=== PATIENT | female | born 1935 | race Caucasian/White ===

== ENCOUNTER 2017-07-03 12:35 | Outpatient (CLI) | payer MEDICARE ==
[2017-07-03 14:43] LABS: Hematocrit 46.6 % (36.0-47.0); Mean Platelet Volume 7.5 fL (7.4-10.4); Red Blood Cell (RBC) Count 4.74 mill/uL (4.20-5.40); White Blood Cell (WBC) Count 8.5 thou/uL (4.8-10.8)
[2017-07-03 14:45] LABS: Hematocrit 46.6 % (36.0-47.0)
[2017-07-03 14:48] LABS: Bilirubin Negative (Negative); Blood, Urine Negative (Negative); Glucose, Urine (Dipstick) Negative (Negative); Ketone, Urine Negative (Negative); Nitrite Positive (Negative); Protein, Urine (Dipstick) Trace mg/dL (Neg-Trace)
[2017-07-03 14:52] LABS: PTT 29.1 SEC (22.9-36.1); Prothrombin Time 14.2 SEC (12.0-14.7)
[2017-07-03 14:55] LABS: Bacteria/HPF 4+ HPF (None Seen); Hyaline Casts/LPF 4-6 HYALINE CAST LPF (0-3 Hyaline); RBC/HPF 0-3 HPF (0-3); Squamous Epithelial 0-3 HPF (0-3)
[2017-07-03 15:07] LABS: Anion Gap 15 mmol/L (10-20); BUN (Urea Nitrogen) 18 mg/dL (9.8-20.1); Calc. Creatinine Clearance 0 mL/min (70-130); Calcium 10.3 mg/dL (7.8-10.44); Carbon Dioxide 23 mmol/L (23-31); Chloride 105 mmol/L (98-107); Estimated GFR-MDRD 56
--- NOTE | 2017-07-04 10:01 | EKG ---
Test Reason : PREOP Blood Pressure : / mmHG Vent. Rate : 069 BPM Atrial Rate : 069 BPM P-R Int : 140 ms QRS Dur : 082 ms QT Int : 404 ms P-R-T Axes : 036 -47 023 degrees QTc Int : 432 ms Sinus rhythm with occasional Premature ventricular complexes Low voltage QRS Left anterior fascicular block Abnormal ECG No previous ECGs available Confirmed by SISSY PARNELL ([id number]) on 07/04/2017 10:01:10 AM Referred By: JENNIFER Confirmed By:SISSY PARNELL
== END 2017-07-03 12:36 | disposition home or self-care (01) ==
LOC: LABBT 12:35
PROVIDERS: ATTEND Urology
DX: Z01.812 Encounter for preprocedural laboratory examination (principal); N20.0 Calculus of kidney
CPT/HCPCS: 80048; 81001; 85027; 85576; 85610; 85730; 87077; 87086; 87186; 93005; 93010

== ENCOUNTER 2017-07-10 06:06 | Day surgery (SDC) | payer MEDICARE ==
[2017-07-03 12:52] VITALS: BMI 26.4
[2017-07-10] MEDS ORDERED: Fentanyl 100 MCG/2 ML VIAL ONE (06:29)
[2017-07-10] MEDS ORDERED: Sodium Chloride 0.9% 100 ML ONE (06:39)
[2017-07-10] MEDS ORDERED: cefTRIAXone\\ROCEPHIN 1 GM VIAL ONE (06:39)
[2017-07-10] MEDS ORDERED: Lidocaine 1% PF 5 ML VIAL ONE (07:34)
[2017-07-10] MEDS ORDERED: Dexamethasone 20 MG/5 ML VIAL ONE (07:34)
[2017-07-10] MEDS ORDERED: Glycopyrrolate 0.2 MG/ML 5 ML SYRINGE ONE (07:34)
[2017-07-10] MEDS ORDERED: Propofol 200 MG/20 ML VIAL ONE (07:34)
[2017-07-10] MEDS ORDERED: ePHEDrine/0.9% NaCl/PF SYRINGE 50 mg/10 ml ONE (07:34)
[2017-07-10] MEDS ORDERED: PHENYLEPHRINE-NS 100 MCG/ML 10 ML SYRINGE ONE (07:34)
[2017-07-10] MEDS ORDERED: Iothalamate Meglumine 60% 50 ML VIAL FS ONE (08:29)
--- NOTE | 2017-07-10 09:31 | OP ---
DATE OF PROCEDURE: 07/10/2017 PREOPERATIVE DIAGNOSIS: Left renal stone. POSTOPERATIVE DIAGNOSIS: Left renal stone. PROCEDURE PERFORMED: Left extracorporeal shock wave lithotripsy, cystoscopy, left stent. SURGEON: Noe Rose M.D. ANESTHETIC: General. ESTIMATED BLOOD LOSS: Not recorded. FINDINGS: There is a 1.5 cm stone in the left renal pelvis treated with 2400 shocks at level 4 with good fragmentation. A 6 x 24 Polaris double-J stent was placed. The string was not attached. OPERATIVE TECHNIQUE: After obtaining IV antibiotics and after obtaining written and verbal consent and documenting normal preoperative blood work, she was taken to the operating suite. She was place d in a supine position on the treatment table. PlexiPulses were placed on her lower extremities and turned on. She was given a general anesthetic, oral obturator intubation. She was maintained in a supine position. She was coupled to the lithotriptor unit. The stone was placed in treatment foca l point and shockwave therapy was commenced. Fluoroscopy was used intermittently to assess stone fr agmentation and to reposition as necessary. After about 200 shocks, a 5 minute pause was given. Th e stone was breaking up very well, so we did not have to go above the level of 4. After 2400 shocks , it appeared that the stone had fragmented well and at this point, she was placed in the dorsal lit hotomy position. She was sterilely prepped and draped. Cystoscopy was performed with a 22-[place] s tony. This was well lubricated and passed under direct vision through the female urethra into the urinary bladder. The bladder was filled and emptied a number of times. There was some bloody efflu x from the left ureteral orifice. A 5 [place] Pollack catheter was placed 2 or 3 cm up the left uret eral orifice and contrast was injected in a retrograde manner, looked like the stone was consistent fragments. No fragments along the ureter. She had a dilated left upper caliceal system and we pass ed the open-ended catheter up until that with the aid of a straight Glidewire and replaced through t he open-ended catheter, a 0.038 guidewire, removed the open-ended catheter and placed a stent over t he guidewire, pushing up into place so its proximal end coiled in the dilated upper caliceal system and its distal end coiled in the bladder when the wire was removed. The patient was then awakened a nd extubated and taken by stretcher to the recovery room.
== END 2017-07-10 11:10 | disposition home or self-care (01) ==
LOC: SDC 06:06
PROVIDERS: ATTEND Urology
PROC: 0TF4XZZ Fragmentation in Left Kidney Pelvis, External Approach (ICD-10-PCS; principal; 2017-07-10)
PROC: 0T778DZ Dilation of Left Ureter with Intraluminal Device, Via Natural or Artificial Opening Endoscopic (ICD-10-PCS; 2017-07-10)
DX: N20.0 Calculus of kidney (principal); Z90.49 Acquired absence of other specified parts of digestive tract; Z98.890 Other specified postprocedural states
CPT/HCPCS: 50590; 52332; C1758; C1769; J0696; J1100; J2001; J2704; J3010; J7050; Q9961

== ENCOUNTER 2019-05-22 05:55 | Day surgery (SDC) | payer MEDICARE ==
[2019-05-21 14:01] VITALS: BMI 25.4
[2019-05-22 06:33] LABS: #Basophils 0.1 thou/uL (0.0-0.2); #Eosinphils 0.1 thou/uL (0.0-0.7); #Lymphocytes 2.2 thou/uL (1.20-3.40); #Monocytes 0.6 thou/uL (0.11-0.59); #Neutrophils 5.4 thou/uL (1.40-6.50); %Basophils 0.9 % (0.0-1.0); %Eosinophils 1.5 % (0.0-10.0); %Lymphocytes 26.5 % (21.0-51.0); %Monocytes 7.2 % (0.0-10.0); %Neutrophils 63.9 % (42.0-75.0); Hemoglobin 14.9 g/dL (12.0-16.0); Mean Corpuscular HGB CONC 32.6 g/dL (32.0-36.0); Mean Corpuscular Hemoglobin 31.8 pg (27.0-31.0); Mean Corpuscular Volume 97.6 fL (78.0-98.0); Mean Platelet Volume 7.5 fL (7.4-10.4); Platelet Count 286 thou/uL (130-400); RBC Distribution Width 12.6 % (11.5-14.5); Red Blood Cell (RBC) Count 4.69 mill/uL (4.20-5.40); White Blood Cell (WBC) Count 8.4 thou/uL (4.8-10.8)
[2019-05-22 06:35] LABS: Platelet Count 281 thou/uL (130-400)
[2019-05-22 06:38] LABS: INR-International Normal Ratio 1.1; PTT 25.7 SEC (22.9-36.1); Prothrombin Time 13.7 SEC (12.0-14.7)
[2019-05-22 06:50] LABS: Anion Gap 14 mmol/L (10-20); BUN (Urea Nitrogen) 15 mg/dL (9.8-20.1); Calc. Creatinine Clearance 49 mL/min (70-130); Carbon Dioxide 24 mmol/L (23-31); Chloride 107 mmol/L (98-107); Estimated GFR-MDRD 65; Glucose 94 mg/dL (83-110); Potassium 3.8 mmol/L (3.5-5.1); Sodium 141 mmol/L (136-145)
[2019-05-22 06:51] LABS: EPI 73 SEC (67-199)
[2019-05-22] MEDS ORDERED: Fentanyl 100 MCG/2 ML VIAL ONE (06:56)
[2019-05-22] MEDS ORDERED: Iothalamate Meglumine 60% 50 ML VIAL FS ONE (07:12)
[2019-05-22] MEDS ORDERED: ceFAZolin Sodium (SDC) 2 GM/100 ML BAG ONE (07:23)
--- NOTE | 2019-05-22 08:12 | RAD ---
SUPINE ABDOMEN: HISTORY: Preop. COMPARISON: 08/16/2017 FINDINGS: The left renal stent noted on the prior exam has been removed. Numerous calcifications again overly the left abdomen, many of which appear to lie outside the kidney. There is stool and gas throughout the colon with scattered small bowel gas obscuring the renal outlines. There are degenerative change s in the spine with scoliotic curvature. No acute interval change. POS: [facility]
--- NOTE | 2019-05-22 09:22 | OP ---
DATE OF PROCEDURE: 05/22/2019 PREOPERATIVE DIAGNOSIS: Left renal pelvic stone. POSTOPERATIVE DIAGNOSIS: Left renal pelvic stone. PROCEDURE PERFORMED: Left extracorporeal shockwave lithotripsy. ANESTHESIA: General. ESTIMATED BLOOD LOSS: Not recorded. FINDINGS: There is a 9-mm left renal pelvic stone that was treated with 2500 shocks at level 4 and 300 shocks at level 5. It did appear to fragment well and stent was not placed. DESCRIPTION OF PROCEDURE: After obtained written and verbal consent from the patient, after receiving IV Ancef, she was taken to the operating suite. She was placed in the supine position on the treatment table. PlexiPulses were placed on her lower extremities and turned on. She was given a general anesthetic and oral obturator intubation. She was coupled to the lithotripsy unit and the stone was placed in treatment focal point. Shockwave therapy was commenced at a very low kV and a low rate. After a couple of 100 shocks, a few minutes pause was given and then we restarted the treatment going up to level 4, keeping the rate at 60. Fluoroscopy was used intermittently to document stone fragmentation and reposition as necessary. At about 1500 shocks, we increased the rate to 5 and this did help to break up the stone even a little bit better than before and then for the last 200, we were back to level 4. After 2500 shocks, the procedure was terminated and she was awakened and extubated and taken by bety to the recovery room. Job ID: [id number]
== END 2019-05-22 10:55 | disposition home or self-care (01) ==
LOC: SDC 05:55
PROVIDERS: ATTEND Urology
PROC: 0TF4XZZ Fragmentation in Left Kidney Pelvis, External Approach (ICD-10-PCS; principal; 2019-05-22)
DX: N20.0 Calculus of kidney (principal); I10 Essential (primary) hypertension; E89.2 Postprocedural hypoparathyroidism; Z79.82 Long term (current) use of aspirin; Z79.899 Other long term (current) drug therapy; Z88.5 Allergy status to narcotic agent
CPT/HCPCS: 36415; 74018; 80048; 85025; 85576; 85610; 85730; J0690; J3010

== ENCOUNTER 2019-06-26 05:53 | Day surgery (SDC) | payer MEDICARE ==
[2019-06-25 10:24] VITALS: BMI 26.4
[2019-06-26] MEDS ORDERED: cefTRIAXone\\ROCEPHIN 1 GM VIAL ONE (06:25)
[2019-06-26] MEDS ORDERED: Sodium Chloride 0.9% 100 ML ONE (06:25)
[2019-06-26] MEDS ORDERED: Fentanyl 100 MCG/2 ML VIAL ONE (06:26)
[2019-06-26 06:46] LABS: #Basophils 0.1 thou/uL (0.0-0.2); #Eosinphils 0.2 thou/uL (0.0-0.7); #Lymphocytes 2.1 thou/uL (1.20-3.40); #Monocytes 0.5 thou/uL (0.11-0.59); #Neutrophils 3.2 thou/uL (1.40-6.50); %Eosinophils 2.6 % (0.0-10.0); %Monocytes 8.1 % (0.0-10.0); %Neutrophils 53.2 % (42.0-75.0); Hemoglobin 13.2 g/dL (12.0-16.0); Mean Corpuscular Hemoglobin 31.8 pg (27.0-31.0); Mean Corpuscular Volume 96.4 fL (78.0-98.0); Mean Platelet Volume 7.4 fL (7.4-10.4); Platelet Count 233 thou/uL (130-400); RBC Distribution Width 12.3 % (11.5-14.5); Red Blood Cell (RBC) Count 4.15 mill/uL (4.20-5.40); White Blood Cell (WBC) Count 6.1 thou/uL (4.8-10.8)
[2019-06-26 07:09] LABS: Anion Gap 11 mmol/L (10-20); BUN (Urea Nitrogen) 15 mg/dL (9.8-20.1); Calc. Creatinine Clearance 47 mL/min (70-130); Calcium 9.2 mg/dL (7.8-10.44); Carbon Dioxide 23 mmol/L (23-31); Chloride 109 mmol/L (98-107); Estimated GFR-MDRD 62; Glucose 87 mg/dL (83-110); Potassium 4.1 mmol/L (3.5-5.1); Sodium 139 mmol/L (136-145)
--- NOTE | 2019-06-26 08:00 | RAD ---
KUB: Date 06/26/19 INDICATION: Preop evaluation. COMPARISON: Prior exam dated 05/22/19. FINDINGS: Calcifications overlying the left upper quadrant of the abdomen have not appreciably changed. There i s a new set of calcifications within the left hemipelvis which may reflect distal ureteral stones. On e is seen measuring 5 mm and one is measuring approximately 4 mm. There are additional smaller calcif ications within the lower pelvis that are stable from the prior exam likely reflecting phleboliths. C alcifications of the aorta are stable. Levoscoliosis of the lumbar spine is similar appearing. IMPRESSION: 1. Two new calcifications within the lower left hemipelvis suspicious for distal ureteral stones. 2. Prominent amount of calcifications within the left upper quadrant of the abdomen, some of which d o not directly overlie the renal shadow. POS: [facility]
[2019-06-26] MEDS ORDERED: Iothalamate Meglumine 60% 50 ML VIAL FS ONE (08:33)
[2019-06-26] MEDS ORDERED: Furosemide 20 MG/2 ML VIAL ONE (08:56)
--- NOTE | 2019-06-26 13:01 | OP ---
DATE OF PROCEDURE: 06/26/2019 PREOPERATIVE DIAGNOSES: Left distal ureteral stones, possible proximal left ureteral stone. POSTOPERATIVE DIAGNOSES: Left distal ureteral stones, possible proximal left ureteral stone. PROCEDURES PERFORMED: Cysto, left extracorporeal shock wave lithotripsy, and left retrograde. ANESTHESIA: General. EBL: Not recorded. FINDINGS: She had what appeared to be probably two stones maybe in 2 to 3 mm in size in the left distal ureter. These were left after being treated for a renal stone that was much larger about a month ago. She has passed majority of these stone fragments, but these two have persisted. She has been having some flank discomfort and she is coming in now to have this re-treated. There was a suggestion on her preop x-ray a week ago that she may have a stone in the proximal ureter. For that reason, we will likely do a retrograde study today. DESCRIPTION OF PROCEDURE: Obtained written and verbal consent from the patient after documenting normal blood work and after receiving IV antibiotics, she was taken to the operating suite. She was placed in the supine position on the treatment table. PlexiPulses were placed on her lower extremities and turned on. She was given a general anesthetic and then oral obturator intubation. She was placed in a supine position on the treatment table and a general anesthetic and oral obturator was given. C-arm was then brought in. The little stones in the distal ureter can easily be seen and she was coupled to the lithotripsy unit. The stones were placed in treatment focal point and shockwave therapy was commenced. She had a total of 2500 shocks at level 5 maximum. They did appear to fragment well. At this point, she was placed in the dorsal lithotomy position and prepped and draped for cystoscopy. Cystoscopy was done with a 22-[place] sheath. This was well lubricated and passed under direct vision through the female urethra into the urinary bladder with aid of a 30-degree lens and video camera and monitor. The bladder was filled and emptied. There was number stone fragments already on the floor of the bladder that were washed out and some blood. A 5-[place] Pollack catheter was flushed with contrast and placed into the left ureteral orifice. The contrast was slowly injected in a retrograde manner filling out the left ureter and upper collecting system. She had some mild hydronephrosis. She had no evidence of any other stones in her left ureter whether mid, proximal, or distal. She has stones in the left kidney, but they are not in the renal pelvis or ureter. After the Malakoff catheter was removed, we watched her for a few minutes as she effluxed initially bloody and then clear urine and contrast out the left ureter without any evidence of obstruction. For this reason, the stent was not placed. At this point, the bladder was drained and the instruments were removed. She was taken out of dorsal lithotomy position, awakened, extubated, and taken by stretcher to recovery room. Job ID: [id number]
--- NOTE | 2019-06-26 16:55 | EKG ---
Test Reason : PREOP Blood Pressure : / mmHG Vent. Rate : 054 BPM Atrial Rate : 054 BPM P-R Int : 168 ms QRS Dur : 080 ms QT Int : 410 ms P-R-T Axes : 031 -31 019 degrees QTc Int : 388 ms Sinus bradycardia Left axis deviation Abnormal ECG When compared with ECG of 03-JUL-2017 13:08, Premature ventricular complexes are no longer Present Confirmed by DR. Patty PADRON ([id number]) on 06/26/2019 4:55:01 PM Referred By: AZAR Confirmed By:DR. Patty PADRON
== END 2019-06-26 10:25 | disposition home or self-care (01) ==
LOC: SDC 05:53
PROVIDERS: ATTEND Urology
PROC: 0TF7XZZ Fragmentation in Left Ureter, External Approach (ICD-10-PCS; principal; 2019-06-26)
PROC: BT1F1ZZ Fluoroscopy of Left Kidney, Ureter and Bladder using Low Osmolar Contrast (ICD-10-PCS; 2019-06-26)
DX: N13.2 Hydronephrosis with renal and ureteral calculous obstruction (principal); I10 Essential (primary) hypertension; Z79.2 Long term (current) use of antibiotics; Z79.899 Other long term (current) drug therapy; Z88.5 Allergy status to narcotic agent
CPT/HCPCS: 50590; 52005; 74018; 80048; 85025; 93005; C1758; 36415; 93010; J0696; J1940; J3010; J3490

== ENCOUNTER 2023-07-27 12:17 | Outpatient (CLI) | payer OTHER, MEDICARE ==
[2023-07-27 16:13] LABS: #Basophils 0.1 10x3/uL (0.0-0.2); #Eosinphils 0.2 10x3/uL (0.0-0.5); #Monocytes 0.6 10x3/uL (0.0-1.1); #Neutrophils 5.2 10x3/uL (1.5-8.4); %Basophils 0.6 % (0.0-2.0); %Eosinophils 1.9 % (0.0-6.0); %Lymphocytes 28.1 % (18.0-47.0); %Monocytes 7.6 % (0.0-10.0); %Neutrophils 61.4 % (40.0-75.0); Hematocrit 38.8 % (34.9-44.5); Hemoglobin 12.8 g/dL (12.0-15.5); Mean Corpuscular Hemoglobin 31.3 pg (27.0-33.0); Mean Corpuscular Volume 94.9 fl (81.6-98.3); Mean Platelet Volume 10.3 fl (7.4-10.4); Platelet Count 385 10x3/uL (150-450); RBC Distribution Width 13.6 % (11.5-14.5); Red Blood Cell (RBC) Count 4.09 10x6/uL (3.90-5.03); White Blood Cell (WBC) Count 8.5 10x3/uL (3.5-10.5)
[2023-07-27 16:16] LABS: INR-International Normal Ratio 1.1; PTT 25.1 sec (22.0-33.0); Prothrombin Time 11.5 sec (9.5-12.1)
[2023-07-27 16:44] LABS: ALT (SGPT) 16 U/L (8-55); AST (SGOT) 23 U/L (5-34); Albumin 4.2 g/dL (3.4-4.8); Alkaline Phosphatase 42 U/L (40-110); Anion Gap 13 mmol/L (10-20); BUN (Urea Nitrogen) 17 mg/dL (9.8-20.1); Bilirubin, Direct 0.2 mg/dL (0.1-0.3); Bilirubin, Total 0.6 mg/dL (0.2-1.2); Calc. Creatinine Clearance 0 mL/min (70-130); Calcium 10.2 mg/dL (7.8-10.44); Carbon Dioxide 28 mmol/L (23-31); Chloride 106 mmol/L (98-107); Estimated GFR 57; Globulin 2.5 g/dL (2.4-3.5); Glucose 117 mg/dL (83-110); Potassium 3.4 mmol/L (3.5-5.1); Protein, Total 6.7 g/dL (5.8-8.1); Sodium 144 mmol/L (136-145)
== END 2023-07-27 12:18 | disposition home or self-care (01) ==
LOC: LABBT 12:17
PROVIDERS: ATTEND Internal Medicine Cardiovascular Disease
DX: Z01.818 Encounter for other preprocedural examination (principal); I25.10 Atherosclerotic heart disease of native coronary artery without angina pectoris
CPT/HCPCS: 80053; 80076; 85025; 85610; 85730; 93005; 93010

== ENCOUNTER 2023-07-31 07:12 | Day surgery (SDC) | payer OTHER, MEDICARE ==
[2023-07-27 13:01] VITALS: BMI 22.6
[2023-07-31] MEDS ORDERED: Lidocaine 1% MPF 2 ML VIAL ONE (07:52)
[2023-07-31 08:44] LABS: Cardiac Risk 2.5 (Less than 4.5)
[2023-07-31] MEDS ORDERED: Nitroglycerin 50 MG/250 ML BOT 250 ML ONE (09:14)
[2023-07-31] MEDS ORDERED: Lidocaine 1% (PF) 30 ML VIAL ONE (09:14)
[2023-07-31] MEDS ORDERED: Heparin 10,000 UNITS/ 10 ML VIAL ONE (09:14)
[2023-07-31] MEDS ORDERED: Verapamil 5 MG/2 ML VIAL ONE (09:15)
[2023-07-31] MEDS ORDERED: fentaNYL 50 mcg/mL 1 mL Vial ONE (09:41)
[2023-07-31] MEDS ORDERED: Midazolam HCl 2 mg/2 ml Vial ONE (09:42)
[2023-07-31] MEDS ORDERED: Clopidogrel Bisulfate 300 MG TAB ONE (10:33)
[2023-07-31] MEDS ORDERED: Atropine Sulfate 1 mg/10 ml Syringe ONE (10:43)
[2023-07-31] MEDS ORDERED: Iopamidol 370 76% 100 ML VIAL ONE (13:17)
== END 2023-07-31 14:09 | disposition home or self-care (01) ==
LOC: SDC 07:12
PROVIDERS: ATTEND Internal Medicine Cardiovascular Disease
PROC: 4A023N7 Measurement of Cardiac Sampling and Pressure, Left Heart, Percutaneous Approach (ICD-10-PCS; principal; 2023-07-31)
PROC: B210YZZ Fluoroscopy of Single Coronary Artery using Other Contrast (ICD-10-PCS; principal; 2023-07-31)
DX: I25.10 Atherosclerotic heart disease of native coronary artery without angina pectoris (principal); I35.0 Nonrheumatic aortic (valve) stenosis; I10 Essential (primary) hypertension; I27.20 Pulmonary hypertension, unspecified; E78.5 Hyperlipidemia, unspecified; R09.89 Other specified symptoms and signs involving the circulatory and respiratory systems; R07.9 Chest pain, unspecified; Z88.5 Allergy status to narcotic agent
CPT/HCPCS: 80061; 85347; 92928; 92929; 93458; 99152; 99153; C1769; C1874; C1887; C1894; C9600; C9601; J0461; J1644; J2001; J2250; J3010; Q9967

== ENCOUNTER 2025-04-08 10:54 | Day surgery (SDC) | payer MEDICARE ==
[2025-04-01 13:16] VITALS: BMI 22.6
[2025-04-08] MEDS ORDERED: cefTRIAXone (ROCEPHIN) 1 GM VIAL ONE (12:38)
[2025-04-08] MEDS ORDERED: PROPOFOL 20 ML ONE (14:00)
[2025-04-08] MEDS ORDERED: Ondansetron PF 4 MG/2 ML Vial ONE (14:08)
[2025-04-08] MEDS ORDERED: Glycopyrrolate 0.2 MG/ML 5 ML SYRINGE ONE (14:26)
[2025-04-08] MEDS ORDERED: PHENYLEPHRINE-NS 100 MCG/ML 10 ML SYRINGE ONE (14:33)
== END 2025-04-08 16:00 | disposition home or self-care (01) ==
LOC: SDC 10:54
PROVIDERS: ATTEND Urology
PROC: 0WHR8YZ Insertion of Other Device into Genitourinary Tract, Via Natural or Artificial Opening Endoscopic (ICD-10-PCS; principal; 2025-04-08)
DX: N20.0 Calculus of kidney (principal); Z88.5 Allergy status to narcotic agent
CPT/HCPCS: 52332; 74420; C1769; C2617; J0696; J1100; J2405; J2704; J3010; Q9967

== ENCOUNTER 2025-05-06 10:10 | Day surgery (SDC) | payer MEDICARE ==
[2025-04-28 11:32] VITALS: BMI 22.3
[2025-05-06] MEDS ORDERED: cefTRIAXone (ROCEPHIN) 2 GM VIAL ONE (12:15)
[2025-05-06] MEDS ORDERED: Ondansetron PF 4 MG/2 ML Vial ONE (12:59)
[2025-05-06] MEDS ORDERED: Rocuronium Bromide 10 MG/ML (10ML VIAL) ONE (12:59)
[2025-05-06] MEDS ORDERED: fentaNYL PF 100 MCG/2 ML SYRINGE ONE (12:59)
[2025-05-06] MEDS ORDERED: Lidocaine 1% PF 5 ML VIAL ONE (12:59)
[2025-05-06] MEDS ORDERED: PROPOFOL 40 ML ONE (13:00)
[2025-05-06] MEDS ORDERED: SUGAMMADEX SODIUM 200 MG/2 ML VIAL ONE ×2 (13:00→14:41)
== END 2025-05-06 16:07 | disposition home or self-care (01) ==
LOC: SDC 10:10
PROVIDERS: ATTEND Urology
DX: N20.0 Calculus of kidney (principal); I10 Essential (primary) hypertension; I25.10 Atherosclerotic heart disease of native coronary artery without angina pectoris; E78.00 Pure hypercholesterolemia, unspecified; Z98.51 Tubal ligation status; Z95.5 Presence of coronary angioplasty implant and graft; Z90.49 Acquired absence of other specified parts of digestive tract; Z88.5 Allergy status to narcotic agent; Z79.899 Other long term (current) drug therapy
CPT/HCPCS: 52332; C9761; 74420; C1747; C1758; C1769; C1894; C2617; J0696; J1100; J2405; J2704; Q9967